=== PATIENT | female | born 1965 | race Two or more races ===

== ENCOUNTER 2018-11-23 07:17 | Day surgery (SDC) | payer OTHER ==
[~2018-11-23 07:17] MED LIST: GLIPIZIDE ER2.5 MG PO; HYDROCHLORIZIDE PO; [UNRECOGNIZED DRUG - OTHER] PO
== END 2018-11-23 17:00 | disposition home or self-care (01) ==
LOC: CIR.AMB 07:17
DX: M67.441 Ganglion, right hand (principal)

== ENCOUNTER 2022-12-09 05:33 | Day surgery (SDC) | payer OTHER ==
[~2022-12-09] VITALS: Ht 157.5 cm; Wt 80.7 kg
[~2022-12-09 05:33] MED LIST changes: +HYDROCHLOROTHIA25 MG PO; +LEVOTHYROXINE25 MCG PO; +LIPITOR40 MG PO; +LOSARTAN POTASS50 MG PO; +METFORMIN HCL500 M3 PO
== END 2022-12-09 11:45 | disposition home or self-care (01) ==
LOC: CIR.AMB 05:33
PROVIDERS: ATTEND Orthopaedic Surgery Hand Surgery
DX: D21.12 Benign neoplasm of connective and other soft tissue of left upper limb, including shoulder (principal); R22.31 Localized swelling, mass and lump, right upper limb; E11.9 Type 2 diabetes mellitus without complications; E78.00 Pure hypercholesterolemia, unspecified; E78.3 Hyperchylomicronemia; Z20.822 Contact with and (suspected) exposure to COVID-19; I10 Essential (primary) hypertension; Z79.84 Long term (current) use of oral hypoglycemic drugs